=== PATIENT | male | born 1975 | race Caucasian/White ===

== ENCOUNTER 2020-12-23 18:11 | Emergency (ER) | payer BC ==
[2020-12-23 18:36] LABS: BASO # 0.05 (0.02-0.10); EOS # 0.04 (0.04-0.40); EOS % 0.3 % (0.0-4.0); HEMATOCRIT 44.4 % (42.0-52.0); HEMOGLOBIN 15.4 g/dL (13.5-18.0); LYMPH# 4.47 (1.50-4.00); MEAN CELL VOLUME 93 fl (78-100); MEAN CORPUSCULAR HEMOGLOBIN 32 pg (27-31); MEAN CORPUSCULAR HGB CONC 35 g/dL (33-37); MEAN PLATELET VOLUME 10.2 fl (7.4-10.4); MONO # 0.67 (0.20-0.80); NEU # 6.98 (1.40-6.50); PLATELET COUNT 239 K/mm3 (130-400); RED BLOOD COUNT 4.77 M/mm3 (4.20-5.60); RED CELL DISTRIBUTION WIDTH 11.9 % (11.5-14.5); WHITE BLOOD COUNT 12.2 K/mm3 (4.8-10.8)
[2020-12-23 18:47] LABS: ALBUMIN 4.4 g/dL (3.5-5.0)
[2020-12-23 18:48] LABS: CALCIUM 8.8 mg/dL (8.3-10.5)
[2020-12-23 18:50] LABS: URINE WBC 0 /hpf (0-3)
[2020-12-23 18:50] LABS: TOTAL PROTEIN 8.4 g/dL (6.4-8.3)
[2020-12-23 18:51] LABS: TOTAL BILIRUBIN 0.6 mg/dL (0.2-1.2)
[2020-12-23 18:53] LABS: URINE APPEARANCE CLEAR; URINE COLOR YELLOW
[2020-12-23 18:54] LABS: URINE BILIRUBIN NEGATIVE (NEGATIVE); URINE BLOOD TRACE (NEGATIVE); URINE GLUCOSE NEGATIVE (NEGATIVE); URINE KETONE NEGATIVE (NEGATIVE); URINE LEUKOCYTE ESTERASE NEGATIVE (NEGATIVE); URINE NITRATE NEGATIVE (NEGATIVE); URINE PROTEIN(semi-quant) TRACE mg/dL (NEGATIVE); URINE UROBILINOGEN NORMAL (NORMAL)
[2020-12-23 20:15] VITALS: BP 136/91
== END 2020-12-23 20:24 | disposition home or self-care (01) ==
LOC: ED 18:11
PROVIDERS: Physician Assistant
DX: F10.10 Alcohol abuse, uncomplicated (principal); R10.11 Right upper quadrant pain; F17.210 Nicotine dependence, cigarettes, uncomplicated; Y90.8 Blood alcohol level of 240 mg/100 ml or more
CPT/HCPCS: J1885; J3010; J7030; Q9967

== ENCOUNTER 2021-01-05 09:49 | Outpatient (RCR) | payer BC | END 2021-04-05 | disposition home or self-care (01) | LOC: PT | DX: R07.81 Pleurodynia (principal) ==

== ENCOUNTER 2022-07-13 15:35 | Emergency (ER) | payer SELFPAY ==
[~2022-07-13] VITALS: Ht 180.3 cm; Wt 65.9 kg
[2022-07-13 16:14] LABS: BASO # 0.06 K/mm3 (0.02-0.10); EOS # 0.05 K/mm3 (0.04-0.40); EOS % 0.5 % (0.0-4.0); HEMATOCRIT 45.4 % (42.0-52.0); HEMOGLOBIN 15.4 g/dL (13.5-18.0); LYMPH# 3.36 K/mm3 (1.50-4.00); MEAN CELL VOLUME 97 fl (78-100); MEAN CORPUSCULAR HEMOGLOBIN 33 pg (27-31); MEAN CORPUSCULAR HGB CONC 34 g/dL (33-37); MEAN PLATELET VOLUME 10.5 fl (7.4-10.4); MONO # 1.12 K/mm3 (0.20-0.80); NEU # 6.45 K/mm3 (1.40-6.50); PLATELET COUNT 239 K/mm3 (130-400); RED BLOOD COUNT 4.69 M/mm3 (4.20-5.60); RED CELL DISTRIBUTION WIDTH 11.8 % (11.5-14.5); WHITE BLOOD COUNT 11.1 K/mm3 (4.8-10.8)
[2022-07-13 16:25] LABS: ALBUMIN 4.5 g/dL (3.5-5.0); POTASSIUM 4.5 mmol/L (3.5-5.1); SODIUM 136 mmol/L (136-145)
[2022-07-13 16:26] LABS: CALCIUM 10.1 mg/dL (8.3-10.5)
[2022-07-13 16:28] LABS: GLUCOSE 121 mg/dL (75-110); TOTAL PROTEIN 8.3 g/dL (6.4-8.3)
[2022-07-13 16:29] LABS: CARBON DIOXIDE 23 mmol/L (22-29); TOTAL BILIRUBIN 1.3 mg/dL (0.2-1.2)
[2022-07-13 16:31] LABS: ALCOHOL IN-HOUSE < 10 mg/dL (<10)
[2022-07-13 16:33] LABS: AST-SGOT 24 U/L (5-34)
[2022-07-13 16:34] LABS: ALT/SGPT 17 U/L (0-55)
[2022-07-13 16:35] LABS: LIPASE 27 U/L (8-78)
[2022-07-13 16:39] LABS: URINE APPEARANCE CLEAR; URINE BILIRUBIN NEGATIVE (NEGATIVE); URINE BLOOD TRACE (NEGATIVE); URINE COLOR YELLOW; URINE GLUCOSE NEGATIVE (NEGATIVE); URINE KETONE NEGATIVE (NEGATIVE); URINE LEUKOCYTE ESTERASE TRACE (NEGATIVE); URINE MUCUS PRESENT (NOT PRESENT); URINE NITRATE NEGATIVE (NEGATIVE); URINE PROTEIN(semi-quant) NEGATIVE (NEGATIVE); URINE UROBILINOGEN NORMAL (NORMAL); URINE WBC 0-1 /hpf (0-3)
[2022-07-13 17:45] VITALS: BP 122/63
== END 2022-07-13 17:45 | disposition home or self-care (01) ==
LOC: ED 15:35
PROVIDERS: Family Medicine
DX: E86.0 Dehydration (principal)
CPT/HCPCS: J7030

== ENCOUNTER 2023-11-10 12:04 | Emergency (ER) | payer SELFPAY ==
[2023-12-15 01:40] LABS: ALBUMIN 4.7 g/dL (3.5-5.0); BASO # 0.03 K/mm3 (0.02-0.10); CALCIUM 9.3 mg/dL (8.3-10.5); EOS # 0.07 K/mm3 (0.04-0.40); HEMATOCRIT 48.9 % (42.0-52.0); HEMOGLOBIN 16.5 g/dL (13.5-18.0); LYMPH# 4.58 K/mm3 (1.50-4.00); MEAN CELL VOLUME 97 fl (78-100); MEAN CORPUSCULAR HEMOGLOBIN 33 pg (27-31); MEAN CORPUSCULAR HGB CONC 34 g/dL (33-37); MEAN PLATELET VOLUME 9.9 fl (7.4-10.4); MONO # 0.34 K/mm3 (0.20-0.80); NEU # 2.21 K/mm3 (1.40-6.50); PLATELET COUNT 270 K/mm3 (130-400); RED BLOOD COUNT 5.05 M/mm3 (4.20-5.60); RED CELL DISTRIBUTION WIDTH 11.7 % (11.5-14.5); TOTAL BILIRUBIN 0.3 mg/dL (0.2-1.2); TOTAL PROTEIN 8.2 g/dL (6.4-8.3); WHITE BLOOD COUNT 7.3 K/mm3 (4.8-10.8)
[2023-12-15 01:46] LABS: PH-URINE 5.5 (5.0 - 8.0); URINE APPEARANCE CLEAR (CLEAR); URINE BILIRUBIN NEGATIVE (NEGATIVE); URINE COLOR YELLOW (YELLOW); URINE GLUCOSE NEGATIVE (NEGATIVE); URINE KETONE NEGATIVE (NEGATIVE); URINE NITRATE NEGATIVE (NEGATIVE); URINE PROTEIN(semi-quant) NEGATIVE (NEGATIVE)
[2023-12-15 01:47] LABS: URINE BLOOD NEGATIVE (NEGATIVE); URINE LEUKOCYTE ESTERASE NEGATIVE (NEGATIVE); URINE WBC 0-1 /hpf (0-3)
== END 2023-11-11 02:40 ==
LOC: ED 12:04
PROVIDERS: Family Medicine
DX: R45.851 Suicidal ideations (principal); F10.129 Alcohol abuse with intoxication, unspecified